=== PATIENT | female | born 1970 | race Caucasian/White ===

== ENCOUNTER → 2018-11-02 10:22 | Outpatient (CLI) | payer OTHER, SELFPAY ==
--- NOTE | 2018-11-02 10:24 | DI.MG.S_ITS ---
BILATERAL DIGITAL SCREENING MAMMOGRAM 3D/2D WITH CAD: 11/02/2018 CLINICAL: Routine screening. Comparison is made to exams dated: 04/24/2012 mammogram, 03/31/2010 mammogram - [facility], and 01/07/2009 mammogram - [facility]. The tissue of both breasts is heterogeneously dense. This may lower the sensitivity of mammography. Current study was also evaluated with a Computer Aided Detection (CAD) system. There is a new irregular equal density mass with a spiculated margin in the left breast at 1 o'clock posterior depth. There is architectural distortion associated with the mass. No other significant masses, calcifications, or other findings are seen in either breast. IMPRESSION: INCOMPLETE: NEEDS ADDITIONAL IMAGING EVALUATION The new irregular equal density mass in the left breast is indeterminate. Mediolateral and spot compression views as well as additional views with possible ultrasound are recommended. This exam was interpreted at Station ID: [id number]. NOTE: For mammograms, a report in lay terms will be sent to the patient. Approximately 15% of breast malignancies will not be visualized mammographically. In the management of a palpable breast mass, a negative mammogram must not discourage biopsy of a clinically suspicious lesion. Electronically Signed By: Mane webber/romelia:11/04/2018 11:51:29 letter sent: Additional Imaging Needed ACR BI-RADS Category 0: Incomplete 3340F
== END ==
PROVIDERS: Family Provider Specialist; PCP Specialist; Visit Provider Specialist
DX: Z12.31 Encounter for screening mammogram for malignant neoplasm of breast (principal)
CPT/HCPCS: 77063; 77067

== ENCOUNTER → 2018-12-13 10:19 | Outpatient (CLI) | payer OTHER, SELFPAY ==
--- NOTE | 2018-12-13 10:22 | DI.US.S_ITS ---
LIMITED ULTRASOUND OF LEFT BREAST AND AXILLA: 12/13/2018 CLINICAL: Patient returns today to evaluate a focal asymmetry in the left breast. Comparison is made to exams dated: 12/13/2018 mammogram, 11/02/2018 mammogram, and 05/02/2012 [facility]. Color flow and real-time ultrasound of the left breast 1-2 o'clock, and axilla regions were performed. Elliott scale images of the real-time examination were reviewed. There is a 1.1 x 0.7 x 0.6 cm taller than wide irregular mass with an indistinct margin in the left breast at 1:30 o'clock posterior depth 10 CMFN. This irregular mass is hypoechoic. This correlates with mammography findings. There is associated architectural distortion. Color flow imaging demonstrates that there is an adjacent and increased vascularity. No abnormalities were seen sonographically in the left axilla. IMPRESSION: SUSPICIOUS OF MALIGNANCY The 1.1 cm taller than wide irregular mass in the left breast is suspicious of malignancy. A US guided biopsy is recommended. Exam findings, biospy recommendation, and biopsy procedure were discussed with the patient at time of exam. This exam was interpreted at Station ID: [id number]. Electronically Signed By: Peng Salas M.D. slc/:12/13/2018 12:13:16 letter sent: Biopsy Required Ultrasound BI-RADS: 4 Suspicious abnormality
--- NOTE | 2018-12-13 10:22 | DI.MG.S_ITS ---
UNILATERAL LEFT DIGITAL DIAGNOSTIC MAMMOGRAM 3D/2D WITH ADDITIONAL VIEWS: 12/13/2018 CLINICAL: Additional evaluation requested from prior study. Comparison is made to exams dated: 11/02/2018 mammogram, 04/24/2012 mammogram, 03/31/2010 mammogram, and 12/13/2018 [facility]. The tissue of left breast is heterogeneously dense. This may lower the sensitivity of mammography. There is an irregular equal density mass with a spiculated margin in the left breast at 1 o'clock posterior depth. This is seen in additional views ant tomosynthesis. There is architectural distortion associated with the mass. No other significant masses or calcifications are seen in the breast. IMPRESSION: INCOMPLETE: NEEDS ADDITIONAL IMAGING EVALUATION The irregular equal density mass in the left breast is indeterminate. A targeted ultrasound is recommended and will be performed immediately following this exam This exam was interpreted at Station ID: [id number]. NOTE: For mammograms, a report in lay terms will be sent to the patient. Approximately 15% of breast malignancies will not be visualized mammographically. In the management of a palpable breast mass, a negative mammogram must not discourage biopsy of a clinically suspicious lesion. Electronically Signed By: Peng Salas M.D. slc/:12/17/2018 09:35:33 ACR BI-RADS Category 0: Incomplete 3340F
== END ==
PROVIDERS: PCP Specialist; Visit Provider Specialist
DX: R92.2 Inconclusive mammogram (principal); N63.20 Unspecified lump in the left breast, unspecified quadrant
CPT/HCPCS: 76642; 77065; G0279

== ENCOUNTER → 2018-12-30 09:00 | Outpatient (CLI) | payer OTHER, SELFPAY ==
--- NOTE | 2018-12-30 | DI.MG.S_ITS ---
UNILATERAL LEFT DIGITAL DIAGNOSTIC MAMMOGRAM POST-NEEDLE BIOPSY: 12/30/2018 CLINICAL: Left breast mass. Post clip placement. Comparison is made to exams dated: 12/13/2018 mammogram, 11/02/2018 mammogram, and 04/24/2012 mammogram - [facility]. The tissue of left breast is heterogeneously dense. This may lower the sensitivity of mammography. There is a marker clip in the appropriate position in the left breast superior lateral quadrant middle to posterior depth. This marker clip placement is at the biopsy site. IMPRESSION: POST PROCEDURE MAMMOGRAM FOR MARKER PLACEMENT There is a marker clip in the appropriate position in the left breast superior lateral quadrant middle to posterior depth. This marker clip placement is at the biopsy site. This exam was interpreted at Station ID: [id number]. NOTE: For mammograms, a report in lay terms will be sent to the patient. Approximately 15% of breast malignancies will not be visualized mammographically. In the management of a palpable breast mass, a negative mammogram must not discourage biopsy of a clinically suspicious lesion. Electronically Signed By: Vini Hand M.D. ecl/:12/30/2018 11:26:03 ACR BI-RADS Category Post-procedure mammogram for marker placement
--- NOTE | 2018-12-30 | PATH_ITS ---
[facility] Accession Number: [id number] . 01 Material submitted: . breast - LEFT BREAST MASS 1:30 10 CM FN . 01 Clinical history: . LEFT BREAST MASS . 01 Diagnosis: Left Breast Mass, 1:30 o'clock, 10 cm from Nipple, Biopsy: Invasive (ductal) carcinoma, grade 1 of 3 (Underwood combined histologic grade, total score 4/9) with the following features: 1. Tumor grade: - Nuclear pleomorphism: Intermediate (2/3). - Mitotic rate: Low (1/3). - Tubular differentiation: Majority of tumor (1/3). 2. Size of invasive carcinoma: Single largest dimension of 4 mm in this sample, present in 4 fragmented cores. 3. Ductal carcinoma in situ: Present, intermediate nuclear grade, without necrosis. 4. Calcifications: Present, in association with invasive carcinoma and benign breast parenchyma. 5. Lymphatic invasion: Absent. 6. Prognostic markers: - Estrogen receptor: Positive (>99% tumor cells staining; staining intensity: Strong). - Progesterone receptor: Positive (>90% tumor cells staining; staining intensity: Strong). - HER-2 status: Negative for protein expression by immunohistochemistry (1+). [facility]/01/02/2019 . 01 Electronically signed: . Renu Chase MD, Pathologist NPI- [id number] . 01 Gross description: . Received one formalin-filled container labeled with the patient's name and designated left breast mass 1:30 10 cm FN. The specimen is received with a plastic filter in container, sample loose in container and consists of multiple fragments of yellow-call tissue and blood which range in size from 0.2 cm to 0.7 cm in greatest dimension. The specimen is entirely submitted in one cassette. Collection date: 12/30/2018. Collection time per container: 10:08 AM. Total fixation time: 12 hours, up to 24. (DC:[id number]) /FRR . 01 Microscopic: . A panel of immunostains is performed on block A1 to assess for invasive carcinoma, the atypical in-situ proliferation, and for prognostication. All external controls are appropriately positive. The invasive carcinoma shows loss of smooth muscle myosin heavy chain; p63 is positive in some invasive carcinoma cells, and given the pattern of staining, it is interpreted as non-specific staining of neoplastic invasive cells rather than myoepithelial cells. These findings support the presence of invasive carcinoma. Ck5/6 is lost within the in-situ neoplastic proliferation which also shows diffuse ER staining. Along with the morphology, these findings support the presence of ductal carcinoma in situ. . PROGNOSTIC MARKERS: The invasive carcinoma demonstrates the following immunoprofile for ER, [place], HER2: Estrogen receptor status: Positive (>99% tumor cells staining; staining intensity: Strong; Internal controls: Positive). Progesterone receptor status: Positive (>90%tumor cells staining; staining intensity: Strong; Internal controls: Positive). Her2 status: Negative for protein overexpression by IHC (1+). . Internal controls for ER and [place] are positive. Cold ischemic time is <5 minutes. The scoring criteria for breast biomarkers by immunohistochemstry is based on the current ASCO/CAP guidelines (Nelson AC et al J Clin Oncol 2018: 2017 10;36(20):0906-5167). Deparaffinized sections of formalin fixed tissue (along with appropriate positive controls) are incubated with the above antibody(s). Using the automated Moville stainer, tissue is incubated with the designated antibody which is then localized by a non-biotin, dual polymer detection system. The external controls are reviewed for appropriate reactivity and found to be adequate. Results on the target call population are indicated above. These tests have not been validated on decalcified tissue. * This test was developed and its performance characteristics determined by [employer]. It has not been cleared or approved by the U.S. Food and Drug Administration. The FDA has determined that such clearance or approval is not necessary. This test is used for clinical purposes. It should not be regarded as investigational or for research. . 01 Pathologist provided ICD-10: C50.912 . 01 CPT . 018819 Performed at: 01 [facility] [address] [address], [place], [place] [id number] MD Mane Mckeon MD Phone: [phone]
--- NOTE | 2018-12-30 09:02 | DI.US.S_ITS ---
ULTRASOUND GUIDED BIOPSY LEFT BREAST USING VACUUM DEVICE WITH MARKING DEVICE INSERTED AND POST DIGITAL MAMMOGRAPHIC IMAGIN12/30/2018 CLINICAL: Left breast mass. PATIENT CONSENT: Risks (minor bleeding, infection, vasovagal reaction and repeat procedure), benefits and alternatives were explained to the patient and written informed consent was obtained. Correlation is made to exams dated: 12/13/2018 ultrasound, 12/13/2018 mammogram, 11/02/2018 mammogram, 04/24/2012 mammogram, 03/31/2010 mammogram - [facility], and 01/07/2009 mammogram - [facility]. An ultrasound guided biopsy using real-time ultrasound was performed for the concerning mass located in the left breast at 1:30 position 10 cm from the nipple. This was described on the previous ultrasound report. The skin was prepped in the usual manner. 5 mL of 1% lidocaine and 5 mL of 1% lidocaine with epinephrine was used for local anesthesia. A skin sedrick was made in the breast. The abnormality was approached from the lateral aspect. A 13 gauge biopsy needle was placed adjacent to the abnormality under ultrasound guidance. Once the needle was documented to be in the correct location, six specimens were obtained using the Mammotome biopsy system. A clip was inserted into the biopsy cavity. A skin adhesive was applied to the access site. Post procedure digital mammographic imaging demonstrates the location device at the targeted area. The specimens were sent to the laboratory for pathological analysis. IMPRESSION: ULTRASOUND GUIDED BIOPSY MALIGNANT Ultrasound guided biopsy of the mass in the left breast at 1:30 o'clock 10 cm from the nipple was successful with no apparent post procedure complications. Pathology indicates malignant invasive ductal carcinoma (ID) and ductal carcinoma in situ (DCIS). Pathology results are concordant with imaging findings. A surgical/oncologic consultation is recommended. This exam was interpreted at Station ID: [id number]. Vini Andrew M.D. [facility],aty/:01/07/2019 23:57:51
== END ==
PROVIDERS: PCP Specialist; Visit Provider Specialist
DX: C50.412 Malignant neoplasm of upper-outer quadrant of left female breast (principal); D05.12 Intraductal carcinoma in situ of left breast; Z17.0 Estrogen receptor positive status [ER+]; N63.20 Unspecified lump in the left breast, unspecified quadrant; R92.8 Other abnormal and inconclusive findings on diagnostic imaging of breast
CPT/HCPCS: 19083; 77065

== ENCOUNTER → 2019-11-20 14:42 | Outpatient (CLI) | payer OTHER, SELFPAY ==
--- NOTE | 2019-11-20 | DI.MG.S_ITS ---
BILATERAL DIGITAL SCREENING MAMMOGRAM 3D/2D WITH CAD: 11/20/2019 CLINICAL: Routine screening. Comparison is made to exam dated: 04/24/2012 [facility]. The tissue of both breasts is heterogeneously dense. This may lower the sensitivity of mammography. Current study was also evaluated with a Computer Aided Detection (CAD) system. There are benign post operative findings in the left breast. No significant masses, calcifications, or other findings are seen in either breast. There has been no significant interval change. IMPRESSION: There is no mammographic evidence of malignancy. A 1 year screening mammogram is recommended. This exam was interpreted at Station ID: [id number]. NOTE: For mammograms, a report in lay terms will be sent to the patient. Approximately 15% of breast malignancies will not be visualized mammographically. In the management of a palpable breast mass, a negative mammogram must not discourage biopsy of a clinically suspicious lesion. Electronically Signed By: Hilda peña/romelia:11/20/2019 16:26:33 letter sent: Normal Exam ACR BI-RADS Category 2: Benign Finding(s) 3342F
== END ==
PROVIDERS: PCP Specialist; Referring Provider Specialist; Visit Provider Specialist
DX: Z12.31 Encounter for screening mammogram for malignant neoplasm of breast (principal)
CPT/HCPCS: 77063; 77067